=== PATIENT | female | born 1935 | race Caucasian/White ===

== ENCOUNTER 2018-12-25 14:35 | Inpatient (IN) | payer OTHER ==
[~2018-12-25] VITALS: Ht 160 cm; Wt 48.1 kg
[~2018-12-25 14:35] MED LIST: ACETAMINOPHEN-1 EAC1 PO; ASPIR 8181 MG PO; ASPIRIN81 M2 PO; AUGMENTIN 875875 MG PO; AZOR 5-40 MG T1 EACH PO; BENTYL 10 MG CA10 M1 PO; CEFPODOXIME PR200 M1 PO; CEFUROXIME250 MG PO; CIPRO500 MG PO; DIFLUCAN200 MG PO; DULCOLAX5 MG PO; DUONEB 2.5-0.5 M3 ML INH; ENTOCORT EC 3 MG3 MG PO; FLEXERIL PO; FOLIC ACID1 MG PO; KEFLEX500 M1 PO; KEPPRA250 MG PO; KLOR-CON 1010 MEQ PO; LASIX 20 MG TAB20 MG PO; LASIX 40 MG TAB40 M2 PO; LASIX 40 MG TAB40 MG PO; LOMOTIL TABLET1 EACH PO; LOPERAMIDE 2 MG2 M1 PO; MELATONIN5 M1 PO; METOPROLOL SUCC25 M1 PO; MIRALAX17 GM PO; MULTI VITAMIN1 EACH PO; NORVASC5 MG PO; ONDANSETRON HCL4 M2 PO; ONE DAILY FOR1 EAC3 PO; PEPTO-BISMOL1 TAB PO; PREDNISONE 10 M10 MG PO; REMERON15 MG PO; SENNA PLUS TAB1 EACH PO; THERAGRAN-M PR1 EAC1 PO; TRAMADOL 50 MG50 MG PO; TYLENOL325 MG PO; UNICOMPLEX M TA1 TA1 PO; VANCOMYCIN PO; VENTOLIN HFA 1818 GM INH; VITAMIN B-1100 M1 PO; VITAMIN D31000 UNI2 PO; XANAX 0.5 MG0.5 MG PO; ZOCOR20 MG PO; ZOLOFT25 MG PO; ZYPREXA2.5 MG PO; antibiotic; oxycodone PO
--- NOTE | 2018-12-25 17:50 | NUR ---
PT ARRIVED VIA EMS. VS TAKEN AND WT. GOING THROUGH INVENTORY FOR PT AND PT HAS PERSONAL PHONE AND CORD IN PURSE. LET PT KNOW SHE CAN'T HAVE THE CELL PHONE. PT WAS NOT HAPPY AND STATED SHE WOULDN'T OF COME IF SHE KNEW SHE COULDN'T HAVE HER PHONE. TOOK PURSE OFF BED TO WEIGH. THIS NURSE PLACED PURSE IN BAG AND PLACED IN LOCKER. PT HAS HEEL PROTECTORS ON BILATERAL. BED ALARM IN PLACE.
[2018-12-25 18:00] VITALS: BP 135/89
--- NOTE | 2018-12-25 18:38 | NUR ---
OBTAINED ADMISSION ORDERS FOR MEDS AND DIET PER DR. HERNANDEZ.
[2018-12-25 20:28] VITALS: BP 133/72
[2018-12-25 22:35] VITALS: BP 135/89
--- NOTE | 2018-12-25 23:37 | NUR ---
ASSUMED CARE OF PT AT 1930 AND INITIAL ASSESSMENT AT APPROX 1945-PT IS SITTING UP IN BED WHEN APPROACHED-ANGRY TENSE FACIAL EXPRESSION-THIS NURSE INTRODUCED SELF AND INFORMED ИРИНАD I WOULD BE COMPLETING HER ADMISSION TO UNIT. PT STATES "I AM NOT GOING TO BE ADMITTED I AM LEAVING I CAN'T HAVE MY PHONE-I DON'T KNOW WHY I CAN'T HAVE MY PHONE UNLESS YOU ARE TRYING TO KEEP ME FROM CALLING THE POLICE" WHEN I EXPLAINED I WAS A RN WHO'S JOB IT WAS TO HELP HER AND NOT HURT HER SHE STATES "OH I KNOW THAT IS WHAT YOUR BADGE SAYS-BUT YOU ARE AN IMPOSTER" REFUSES TO ANSWER ANY QUESTIONS FOR ADMIT INTERVIEW-REFUSING TO ALLOW ARM BAND AND OR ALLERGY BAND TO BE PUT ON POINTING TO [facility] ARM BAND STATING "THIS ONE IS THE RIGHT ONR-THE ONE YOU HAVE ISN'T REAL" DAUGHTER IN LAW AUGUSTO CONTACTED VIA PHONE AND TRANSFERED TO PT IN ATTEMPT TO REASSURE AND DECREASE ANXIETY LEVEL BUT AFTER HANGING UP PHONE STATES TO THIS NURSE " I DON'T KNOW WHO THAT WAS BUT IT WASN'T ANYONE IN MY FAMILY" REFUSES HS MEDICATIONS OR OFFERS OF FOOD/FLUIDS. DR. HERNANDEZ CONTACTED AND ORDERS RECEIVED TO PLACE PT ON 96 HOUR HOLD
--- NOTE | 2018-12-25 23:46 | NUR ---
NOTICE OF RIGHTS OF INVOLUNTARY PT READ TO PT AT APPROX 2200. PT DENIES QUESTIONS-REFUSES TO SPEAK TO NURSING STAFF-INTENSE GLARING EYE CONTACT AND BEGINS TO YELL OUT "HELP HELP" PT DID CEASE YELLING AFTER APPROX 5-10 MINUTES.
--- NOTE | 2018-12-26 03:08 | NUR ---
PT AWAKE IN ROOM-REQUESTING TO USE BATHROOM-ASSISTED TO BEDSIDE COMMODE WITH ASSIST OF TWO STAFF-HAD BEEN INCONTINENT OF SMALL AMOUNT OF URINE IN BRIEF AND DID VOID APPROX 200 CC IN COMMODE-ALLOWED STAFF TO COMPLETE PERINEAL CARE-AND INSPECT SKIN-COCYX IS NOTED TO BE REDDENED,NO OPEN AREAS SEEN,WEARING HEEL PROTECTORS BILATERALLY- YELLOW BRUISING TO LEFT FOERARM AND RIGHT ANTICUBITAL AREA APPEARS TO BE FROM RECENT IV SITE-SOME YELLOWISH COLORED BRUSING TO LEFT GORDON OBSERVED WELL. REPOSITIONED FOR COMFORT,TOOK SIPS OF WATER AND APPEARS TO BE RESTING QUIETLY AT THIS TIME-SMELLS STRONGLY OF BODY ODOR.
--- NOTE | 2018-12-26 08:41 | NUR ---
Nutrition: assess d/t low Walter score. Pt somewhat resistive to care. No recent weight loss reported. Pt is on Remeron. Will follow PO intake trends and remain available. Consider low nutrition risk at this time.
--- NOTE | 2018-12-26 11:14 | NUR ---
JAMES left a voicemail for pt daughter. JAMES provided contact information. JAMES asked if she could return the call.
--- NOTE | 2018-12-26 12:35 | NUR ---
PSYCHOSOCIAL ASSESSMENT Diagnosis: UNSPECIFIED PSYCHOSIS Admit Date: 12/25/18 Psychiatrist: MARY Symptoms associated with current admission: Depressed mood Paranoid ideation Appetite change Presenting problems: Pt was paranoid, and delusional that someone is trying to harm her. Pt stopped eating due to her having stomach problems. Pt was shown symptoms of depression. Precipitating Factors: Non-compliance psychothx Non-compliance medication Comments: History of High Risk Behavors: Other Suicide Risk Factors: D A-Signs of alcohol/substance abuse w/ suicide ideation B-Recent suicidal thoughts or attempts C-Recent thoughts or attempts of harming someone else D-Altered mental status due to psychiatric/chem dep etiology E-The behavior exists - add comment PSYCHIATRIC HISTORY Age of onset: 83 Prior hospitalizations: 1-2 times hospitalized Hospital names and dates, if available: [facility] ([place]) Most Recent Outpatient HX: Additional information: Legal Status: Voluntary Guardian/Conservatorship type: Contact name: Fe Cookavel Contact phone: [phone] Other: Name: Phone: Other legal issues: (Arrests/convictions Current Status) None P.O. Name and Phone #: FAMILY HISTORY Place of : [place] Raised in: [facility] # Siblings & order: Pt had a sister and the youngest Describe relationships within family of origin: Pt was close to the family until her sister recently Any psychiatric or substance abuse problems within family of origin: Y Has patient been sexually or physically abused, neglected or been taken advantage of financially? N Has the abuse been reported? N Other pertinent family information: Marital history/significant relationships: Domestic violence: N Children ages & who is caring for them: Pt had one adult son who . Is child welfare involved? N Drug history: None Alcohol Use: Frequency: Quantity: Have you ever felt you ought to Cut down on drinking? Have people Annoyed you by criticizing your drinking? Have you ever felt bad or Guilty about your drinking? 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 AXIS SCREENING TOOL [place] I Mood Disorders: Depression [place] II Personality/Mental Retardation: [place] III Medical Impairment: Alzheimer's HTN Other [place] IV Problem(s) with: Housing Health care services [place] V: 50-Serious w/impairment Additional [place] comments: PERSONAL BACKGROUND Relevant cultural issues (ethnicity, values, beliefs, spiritual): None spiritual Rastafarian: Importance of alevism to patient: Unmet spiritual needs What hobbies/interests does the patient have? Garden Animals Bird watching Antiques Sexual orientation (relevant impact to current treatment): Heterosexual : Where did you serve: Branch of service: Rank: Discharge status: Are you a combat ? Occupational/Work: Do you work? N Do you want to work? N How many hours do you work/week? 0 How many jobs have you had in the past 5 years? 0 Do you need assistance finding a job? N Does the patient need assistance in job training? N Source of income: [facility] Does patient have a Payee? N Payee name: Approximate monthly income: 2500 Does patient have adequate funds for next 30 days? Y Education background: High school diploma Highest grade completed: 12th grade Other Educational/training programs: Functional deficits: Explain functional deficits: Current living situation: House/apartment Address/phone where pt. is living: [place], [place] Does the patient plan to continue there after DC? No Patient lives with: Alone Will family/significant other be involved in treatment? Other community support services utilized: Pt will need a referral to memory care setting Support System Available (family/friend) Name: Fe Underwood Phone: Relationship: [phone] Name: Phone: Relationship: Name: Phone: Relationship: Patient strengths: Family support Insight Community support Patient's assets: Positive support system Good self care Patient's weaknesses: Health problems Chronic hx mental illness Additional weaknesses: Pt is displaying cognition problems, and shown symptoms of depression. Patient's perception of current aids social worker/case management needs: Pt stated that SW is someone who assist in care, and help family when needed. PRELIMINARY DISCHARGE PLAN Discharge plan/Community resource contacts: Pt will discharge to a memory care setting Discharge needs: Pt will need assistance with referral to a facility. Problems anticipated on discharge: Compliance w/ med regimen Comments: (factors affecting DC plan/pt. response/interventions) Pt will need to be discharge to a nursing facility.
--- NOTE | 2018-12-26 12:59 | NUR ---
ASSUMED CARE AT 0715 TODAY. HAS BEEN ON THE UNIT FOR MEALS AND ATTENDED GROUPS. 2 FAMILY MEMBERS CAME TODAY. THEY WANTED TO REQUEST PAIN MEDICATIOS FOR THE PT. 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 TYLENOL PRN WAS PROVIDED FOR THE PATIENT. FAMILY MEMBERS WERE HER TO TALK TO THE MACHINE TENDER. PT. GIVEN A BATH TODAY AND BEDDING CHANGED. DENIES SI/HI. STATES SHE IS NOT HAVING [facility] TODAY. IS NOT EATING MUCH OF MEALS (APPROXIMATELY 25%). DRESSED IN HOSPITAL CLOTHING AND HER SWEATER AMD SHOES. STATES HER LAST BM WAS EARLY THIS MORNING.
[2018-12-26 13:12] VITALS: BP 135/89
[2018-12-26 21:11] VITALS: BP 108/72
--- NOTE | 2018-12-27 02:40 | NUR ---
ASSUMED CARE @ 19:15. SITTING IN THE DAYROOM NEAR THE TV. DOES NOT SEEM TO BE WATCHING TV. A&O TO SELF ONLY. HRRR S1, S2 NOTED. LUNGS CTA AND ABD NORMOACTIVE X 4 Q.
[2018-12-27 04:14] VITALS: BP 128/72
[2018-12-27 07:45] VITALS: BP 112/63
--- NOTE | 2018-12-27 10:46 | NUR ---
ASSUMED PATIENT CARE AT 0730. UP AT D.R. TABLE, AWAITING BREAKFAST AT THAT TIME. UNABLE TO TAKE A.M. MEDICATIONS, RELATED TO EXTREME DROWSINESS. TOOK ONE MED IN APPLESAUCE, WOULD NOT SWALLOW THE SECOND MED. WILL ATTEMPT LATER. CONTINUE TO MONITOR.
--- NOTE | 2018-12-27 11:47 | NUR ---
PATIENT C/O OF BACK PAIN TO HER DAUGHTER,ADMINISTERED 650 MG OF TYLENOL AT THIS TIME IN SRAVANTHI[RONAL. AL;SO TOOK ALL A.M. MEDICATIOONS AT THIS TIME.
--- NOTE | 2018-12-27 15:30 | NUR ---
PATIENT BECAME DROWSY AFTER LUNCH; NURSE DIRECTED FILLER SHREDDER HELPER TO LIE PATIENT DOWN FOR A NAP. LYING IN SUPINE POSITION IN BED AT THIS TIME.
--- NOTE | 2018-12-27 16:37 | H ---
[facility] [place] [address] HISTORY AND PHYSICAL Name: MONICA BANDA Room #: 526B-B ADM IN M.R.#: [id number] Admission: 12/25/18 ������������������ Attend Phys: Micheal Hall DO Discharge: ������������������ Date of : 39 Report #: [id number] THIS REPORT FOR: //name// CC: Micheal Malone Leslie DATE OF SERVICE: 12/25/2018 REGULATORY MANAGER: Micheal Cano MD. PRIMARY TEAM ATTENDING PHYSICIAN: Micheal Hall DO. REASON FOR ADMISSION: Paranoia, refusal to take medicines, changes in cognition, concern for dementia process. HISTORY OF PRESENT ILLNESS: This is an 83-year-old female, [place] who moved in 1959 to the [place] with her then who has . The patient is a suboptimal historian. Her [id number], Fe, provided most of the general history. The patient was admitted to [facility] on 12/08/2018 and transferred from [place] on 12/25/2018 to [facility]. The recent events were the patient living independently in a private residence in the community, calling 911 for abdominal pain and does not remember taking 2 Roxicodone pills, but she says she must have done it. She took the medication. She was unable to walk because her legs felt weak. Her left lower leg started to develop a tremor. She also had nausea during this episode. Denies vomiting. The patient became septic went into respiratory failure, required several days on ventilator then weaning. She had a tele-psychiatry consult that really only addressed delirium. PAST MEDICAL HISTORY: Includes cataracts, weakness, unsteady gait, acute renal failure, polio as a child, hypertensive cardiomyopathy with diastolic congestive heart failure. PAST SURGICAL HISTORY: Appendectomy 1998, double abdominal hernia 2000. FAMILY MEDICAL HISTORY: Heart disease in her mother. SOCIAL HISTORY: Denied smoking, alcohol or recreational drug use. ALLERGIES: SPIRONOLACTONE. REVIEW OF SYSTEMS: CONSTITUTIONAL: Weakness. Denies fever or chills. EYES: She has macular degeneration. HEENT: Headache. Denied dizziness. RESPIRATORY: Denies cough, shortness of breath. [facility] [address] [place] [address] HISTORY AND PHYSICAL Name: MONICA BANDA Room #: 526B-B ADM IN ..#: [id number] Admission: 12/25/18 ������������������ Attend Phys: Micheal Hall DO Discharge: ������������������ Date of : 37 Report #: [id number] CARDIOVASCULAR: Denies chest pain or palpitations. GASTROINTESTINAL: Denies nausea, vomiting or diarrhea. GENITOURINARY: Denies frequency, burning or hematuria. MUSCULOSKELETAL: Pain from the neck down to her hip, particularly on the left side. SKIN: Denies rash or changes in color. NEUROLOGIC: She has a history weaknesses and tremors. PSYCHIATRIC: Denied SI, HI, auditory, visual, or tactile hallucinations. Otherwise, 10-point review of systems was negative. Physical exam performed by Dr. Cano. LABORATORY DATA: Recent laboratories include on 12/21/2018, CBC: WBC 8.0, H and H 13.8 and 40.1, platelet count 308. Coagulation test done on 12/17/2018, PT 12, INR 1.2, APTT 26.9. Chemistries from 12/21/2018, sodium 139, potassium 3.6, chloride 99, bicarbonate 32, anion gap 8, BUN 11, creatinine 0.6, estimated GFR 96. Other ones from 12/21/2018, ALT 23, AST 22, alkaline phosphatase 71. Vitamin B12 level 1526, 25-hydroxy cholecalciferol 29.6, so she is slightly low, folate 31.9. TSH 1.916 on 12/19/2018. The patient had a spinal tap done on 12/17/2018, which was grossly normal. OBJECTIVE: VITAL SIGNS: Today, temperature 36.6, pulse 88, respirations 16, BP 135/89, O2 sat 96%. MUSCULOSKELETAL: She is using a wheelchair now, not ambulating. MENTAL STATUS EXAMINATION: This is a well-developed, fairly nourished, but disheveled female appearing stated age. Attention intact. Concentration limited. Speech slow, normal volume, normal tone. Thought process, linear and limited. Thought content, relative poverty of thought. No psychomotor agitation. No psychomotor retardation. Oriented to person, situation, place, not fully to time, did not know date or day of the week. Denied auditory, visual, or tactile hallucinations. Denied suicidal intent or plan. Some helplessness and some hopelessness. Denied homicidal intent or plan. Memory not formally tested today, but will be in the next few days. Insight limited. Judgment limited. Fund of knowledge below average. IMAGING: Brain MRI with MRA done on the . Dr. Rahman did neurology workup included no evidence of hemodynamically significant stenosis from the MRA head. Head MRI on showed mild to moderate generalized parenchymal volume loss and mild to moderate chronic small vessel ischemic changes. No evidence of acute recent infarction. DIAGNOSES: At this time, unspecified psychosis; rule out major neurocognitive disorder, likely Alzheimer's type with behavioral disturbance. [facility] [address] [place] [address] HISTORY AND PHYSICAL Name: MONICA BANDA Room #: 526B-B ADM IN M.R.#: [id number] Admission: 12/25/18 ������������������ Attend Phys: Micheal Hall DO Discharge: ������������������ Date of : 37 Report #: [id number] comorbidities include opiate withdrawal essentially completed, hypertension, chronic back pain, orthostatic hypotension, recent history of. PLAN AND CURRENT MEDICATIONS: Thiamine 100 mg p.o. daily, olanzapine 2.5 mg p.o. in the a.m., 5 mg p.o. at bedtime, multivitamin, metoprolol succinate 25 mg p.o. daily, folic acid 1 mg p.o. daily, vitamin D2 of 1000 international units p.o. daily, aspirin 81 mg p.o. daily, amlodipine 5 mg p.o. b.i.d., mirtazapine 30 mg p.o. at bedtime, Keppra 250 mg p.o. b.i.d., otherwise just regular PRNs. Evaluate, stabilize and obtained collateral. The patient will likely need a long-term care placement. We will attempt to stratify the degree of her dementia. Time spent on interview, review of records and coordination of care of this patient is 60 minutes. strengths: daughter in lawsupportinve, insured weaknesses: advancing age, multiple medical problems ��������������������������������������������� <ELECTRONICALLY SIGNED> ���������������������������������������� By: Micheal Hall DO ��������������������������������������������� 12/27/18 1637 [id number] Micheal Hall, /nt
[2018-12-27 19:39] VITALS: BP 91/62
--- NOTE | 2018-12-27 22:06 | NUR ---
ASSUMED CARE @ 19:15.IN THE DAY ROOM SITTING AT A TABLE. AWAKE AND ORIENTED TO SELF ONLY. WHEN SPOKEN TO DURING ASSESSMENT, SEEMS TO THINK AOBUT HER ANSWER TO A QUESTION, BUT DOES NOT RESPOND. FLAT AFFECT, LETHARGIC AND QUIET. HRRR, S1S2 NOTED. LUNGS DIMINISHED AND SHALLOW RESPIRATIONS EVEN WHEN PROMPTED TO BREATH DEEPLY FOR ASSESSMENT. 2100 MEDS GIVEN WHOLE WITH YOGART AND WATER. ABD FLAT, NORMOACTIVE BOWEL SOUNDS, NON RESPONSIVE WHEN ASKED ABOUT BM TODAY.
[2018-12-27 22:21] VITALS: BP 91/62
--- NOTE | 2018-12-28 02:01 | NUR ---
ASSUMED CARE @ 19:15. IN DAY ROOM SITTING @ TABLE. A&O X1 TO SELF ONLY. WHEN SPOKEN TO DURING ASSESSMENT, APPEARS TO THINK ABOUT HER RESPONSE TO EACH QUESTION, BUT DOES NOT VERBALY RESPOND. FLAT AFFECT, LETHARGIC AND QUIET. HRRR, S1S2 NOTED. LUNGS SOUNDS ARE DIMINISHED, WITH SHALLOW RESPIRATIONS, EVEN WHEN PROMPTED TO BREATHE DEEPLY. TAKES 2100 MEDS WITH WHOLE WITH YOGART AND WATER. WILL CONTINUE TO MONITOR.
--- NOTE | 2018-12-28 03:54 | NUR ---
AT 02:00 PATIENT'S FSBS WAS 73. SHE DRANK HALF OF AN ENSURE AND RETURNED TO SLEEP. PT WAS ABLE TO AWAKEN, DRINK THE ENSURE AND SPEAK SHORT ANSWERS TO QUESTIONS.
[2018-12-28 11:20] VITALS: BP 96/61
--- NOTE | 2018-12-28 16:57 | NUR ---
ASSUMED CARE AT 0715 TODAY. PT. SITTING AT TABLE NOT SPEAKING. WHEN THIS MRI SPECIALIST APPROACHED THE PT. SHE DID NOT SPEAK. SHE DID NOT EAT WHEN BREAKFAST ARRIVED, EVEN WHEN STAFF TRIED TO ASSIST HER. AFTER 0900 SHE STARTED TALKING TO STAFF IN SHORT ANSWERS. WHEN GIVEN AM MEDICATIONS THEY WERE CRUSHED AND IN APPLESAUCE. AT FIRST SHE KEPT SPITTING THE APPLESAUCE/MED MIXTURE OUT. THIS RN KEPT WORKING AT GIVING HER THE MEDICATIONS. SHE DID FINALLY GET THEM DOWN. SHE SAT UP UNTIL AFTER LUNCH, THEN LAYED DOWN IN HER BED TO REST THIS AFTERNOON.
[2018-12-28 19:17] VITALS: BP 100/70
[2018-12-28 21:40] VITALS: BP 100/70
--- NOTE | 2018-12-29 04:27 | NUR ---
PT QUIET, BUT DID ENGAGE RN WHEN MED TIME ARRIVED. "YOU ARE CRUEL." TOOK MEDS WITH ENCOURAGEMENT, BUT VERBALLIZED IN HER "CRUEL" STATEMENT THAT SHE REALLY DID NOT WANT TO TAKE THEM. MEDS PLACED IN PUDDING, AND PT TOOK MEDS AND THEN FINISHED THE PUDDING. SLEPT WELL THROUGH THE NIGHT.
[2018-12-29 14:15] VITALS: BP 109/62
--- NOTE | 2018-12-29 15:45 | NUR ---
ASSUMED PATIENT CARE AT 0700. PATIENT UP FOR BREAKFAST, WOULD NOT EAT. ALSO WOULD NOT TAKE A.M. MEDICATIONS. HOWEVER, TOOK MEDS AFTER HER DAUGHTER ARRIVED FOR 1045 VISITING. ATTENDED SW GROUP AND R.T. GROUP. ATE 50% OF LUNCH. CURRENTLY SITTING AT D.R. TABLE. FLAT AFFECT, NO BEHAVIORS, SAD MOOD. UNHAPPY WITH BEING HERE. CONTINUE TO MONITOR.
[2018-12-29 20:14] VITALS: BP 105/67
--- NOTE | 2018-12-30 02:22 | NUR ---
Noted to be awake and restless in bed at approx 0130- states she thought it was time to get up for the day and was having a hard time resting-asssited to wc and brought to dayroom for hot tea and cracker-watched new on tv until approx 0200 when she states was ready to return to bed-did void approx 200 cc in bedside commode-noted to have 2-3 + PEDAL EDEMA BILAT.
[2018-12-30 14:35] VITALS: BP 108/72
--- NOTE | 2018-12-30 17:44 | NUR ---
UP TO DINNIING ROOM FOR MEALS. REFUSED AM MEDS UNTIL DAUGHTER VISITED. FLAT AFFECT. CONTINES TO BE PARANOID AND GRUMPY. POOR TO FAIR APPETITE, DRINKS ENSURE. LOWER EXTREMITES WITH 2+ PITTING EDEMA. VOIDS PER BEDSIDE COMMODE. ON ROOM AIR. RESP EVEN AND UNLABORED.
[2018-12-30 20:35] VITALS: BP 110/65
--- NOTE | 2018-12-31 05:28 | NUR ---
IN BED AND APPEARS TO BE SLEEPING UPON INITAL ASSESSMENT THIS PM AT 1945-EAILY AROUSES TO VERBAL STIMULI FOR HS MED PASS BUT DROWSY AND REFUSES TO COME OUT FOR HS SNACK,OR TO CHANGE INTO PAJAMAS. RETURNS TO SLEEP ALMOST IMMEDIATLY AFTER MEDICATION ADMINISTRATION.
--- NOTE | 2018-12-31 05:31 | NUR ---
AWAKE AND REQUESTING TO USE TOILET AT 0300-ASSISTED TO BSC WITH SBA X 1 STAFF AND DID VOID APPROX 200CC CONCENTRATED URINE KEERTHI IN COLOR. NO BM BUT IS NOTED TO HAVE AUDIBLE HYPERACTIVE BS. IRRITABLE DYSPHORIC AFFECT-ABRUPT RESPONSES TO QUIERIES FROM STAFF-REPOSITIONED FOR COMFORT-WILL CONTINUE TO MONITOR
[2018-12-31 07:50] VITALS: BP 122/69
--- NOTE | 2018-12-31 10:56 | NUR ---
Nutrition followup: po intake has been less than 50% most meals. Should be reweighed on Sat 01/03. Team meeting today-pt drinking some ensure and other liquids better than food intake. Has been constipated. On vitamin D, thiamine, folic acid and mvi supplementation. Offer food preferences. Low nutrition risk with appropriate nutrition interventions in place
[2018-12-31 12:37] VITALS: BP 122/69
--- NOTE | 2018-12-31 18:52 | NUR ---
ASSUMED CARE AT 0715 TODAY. PT. UP FOR MEALS, BUT ONLY ONE GROUP. SHE CONTINOUSLY WANTS TO GO TO BED AND GO TO SLEEP. SHE HAS A SLIGHT IRRITABLE EDGE WHEN SHE DOES NOT GET WHAT SHE WANTS. SHE CONTINUES TO WANT TO EAT SOLID FOOD AND ONLY DRINKS PROTEIN DRINKS, COFFEE. RECEIVED PHONE CALL FROM FRIEND NARDA.
[2018-12-31 19:32] VITALS: BP 109/70
--- NOTE | 2018-12-31 21:47 | NUR ---
ASSUMED CARE @ 19:15. UP IN W/C IN DAY ROOM. WHEN ASSESSED, WOULD NOT SPEAK TO ME, BUT SAID ONE COMMENT, "YOU ARE ALL SAYING THE SAME THING TO ME". WHEN PROVIDED 2100 MEDS, FIRST REFUSED TO TAKE, THE NAMES AND PURPOSE OF MEDICATIONS WERE PROVIDED. SHE THEN AGREED TO TAKE, BUT ONCE SHE HAD THE MEDIDCATION IN HER MOUTH, SHE SPIT IT OUT. WILL CONTINUE TO MONITOR.
[2018-12-31 21:55] VITALS: BP 109/70
--- NOTE | 2019-01-01 05:20 | NUR ---
SLEPT WELL ALL NIGHT, FOR A TOTAL OF 9 HOURS.
--- NOTE | 2019-01-01 10:15 | NUR ---
ASSUMED PATIENT CARE AT 0700. PATIENT ASSISTED UP TO BREAKFAST, ATE ONLY 5% OF MEAL. REFUSED ALL A.M. MEDICATION, INCLUDING OLANZAPINE 2.5 MG P.O. LORETO CARSON, CONTACTED R/T POSSIBLE IM INJECTIOON TO REPLACE P.O. ALLI STATED THAT FRIENDS ARE COMING FOR VISITING HOURS IN HER PLACE; WOULD LIKE TO SEE IF VISITORS CAN "COAX HER INTO" TAKING HER 0900 MEDICATIONS. NURSE WILL CALL ALLI BACK IF THOSE EFFORTS ARE NOT SUCCESSFUL. MOOD, QUIET, BEHAVIOR RESISTIVE, AFFECT BLUNTED.
[2019-01-01 20:20] VITALS: BP 104/70
--- NOTE | 2019-01-01 20:42 | NUR ---
Pt resting in bed at beginning of shift, she requested apple juice and was provided. Compliant with medications after given rationale for taking them and compliant with fsbs 140. Pt had pudding as snack and yogurt with meds whole. Pt transfers from w/c to bed with sba steady. sbp 104. Pt denies pain and reported bm today. Noted BLE edema +1. Pt requested to [facility] bed at 2044.
--- NOTE | 2019-01-02 05:52 | NUR ---
Pt awakened for incontinence check and change, requested prn tylenol for back pain and provided.
[2019-01-02 07:35] VITALS: BP 130/70
[2019-01-02 08:00] VITALS: BP 130/70
[2019-01-02 09:00] VITALS: BP 130/70
--- NOTE | 2019-01-02 09:10 | NUR ---
PT SITTING AT DINING ROOM TABLE. PT STATED HER STOMACH HURT EARLIER AND WITH SOME NAUSEA, NO COMPLAINTS AT THIS TIME. PT REFUSING SOME OF AM MEDS SUCH FOLIC ACID, VIT B, AND ZYPREXIA. PT STATED SHE WANTED HER XANAX, DID TAKE ZYPREXIA WITH ENCOURAGEMENT. PT FEEDING SELF.
--- NOTE | 2019-01-02 14:00 | NUR ---
PT WHEELED SELF TO BEDROOM. PT ABLE TO TALK TO AUGUSTO ON PHONE AND THEN WANTED OT GO LAY DOWN. PT ABLE TO GET UP OUT OF CHAIR AND SIT ON BED. ASSISTED PT GETTING LEGS UP ON BED.
--- NOTE | 2019-01-02 14:10 | NUR ---
Recreational Therapy Weekly Progress Note Date of Admission: 12/25/18 Date of Activity Therapy Assessment: 12/28/18 Activity Goal: Patient will participate in 1 recreational therapy group per day until discharge. Initial Goal: Increase socialization in milieu to aid in development of social skills and trusting relationships. Weekly progress towards goal: On track Group participation level: Minimal Behaviors observed: Pts attitude/motivation continues to be poor. Pts participation has become more frequent though continues to be inconsistent. Engagement also continues to be minimal. Plan: No change towards goal
--- NOTE | 2019-01-02 18:15 | NUR ---
PT ACCEPTED NEW MED NAMENDA, PT ASKED WHAT IT WAS, NURSE RESPONDED TO IT HELPS HER MEMORY.
--- NOTE | 2019-01-02 18:30 | NUR ---
PT WANTING SOMETHING FOR ANXIETY. STATED CLOSEST TO GETTING ANT-ANXIETY MED IS 1999. SHE IS WANTING IT NOW.
[2019-01-02 20:38] VITALS: BP 104/67
--- NOTE | 2019-01-03 04:10 | NUR ---
ASSUMED CARE @ 19:15. UP IN W/C TO DAY ROOM. ASKS REPEATEDLY FOR ANTIANXIETY MEDICATION, EXPLAINED THAT CANNOT HAVE UNTIL AFTER 20:05. ACKNOWLEDGES UNDERSTANDING, THEN ASKS AGAIN. MEDS PROVIDED @ 20:30. PT TOOK MEDS WHOLE WITH WATER. REFUSED DOCUSATE. EXPLAINATION OF NAME OF MEDICATIONS AND PURPOSE OF EACH. REPORTS BM THIS MORNING. VS STABLE. WILL CONTINUE TO MONITOR.
[2019-01-03 04:15] VITALS: BP 104/67
--- NOTE | 2019-01-03 04:26 | NUR ---
IN BED ALL NOC. EYES CLOSED, RESPIRATIONS EVEN AND UNLABORED. WILL CONTINUE TO MONITOR.
[2019-01-03 07:55] VITALS: BP 135/75
[2019-01-03 13:13] VITALS: BP 135/75
--- NOTE | 2019-01-03 13:20 | NUR ---
ASSUMED CARE AT 0715 TODAY. UP ON UNIT FOR BREAKFAST. TOOK MEDS WITHOUT DIFFICULTY. UP ON UNIT MUCH OF THE DAY. HAIR IS DISHEAVELED. ATTEMPTED TO COMB HAIR, BUT IT WAS VERY OILY, DIRTY AND KNOTTED. PT. ASKED TO TAKE A SHOWER TODAY. SHE WAS INFORMED SHE WOULD BE GIVEN ONE STAFF CAN HAVE TIME.
[2019-01-03 22:22] VITALS: BP 110/52
--- NOTE | 2019-01-04 05:47 | NUR ---
ASSUMED CARE @ 1900, AT THAT TIME, PT WAS IN BED WITH EYES CLOSED, RESPIRATIONS EVEN AND UNLABORED. AWAKENED TO VOICE, AND VS TAKEN AND ASSESSMENT COMPLETE. FSBS 92 @ 21:15. 2100 MEDICATIONS PROVIDED WHOLE WITH WATER. EXPRESSED A DESIRE FOR TYLENOL, HOWEVER NOT TIME TO TAKE IT UNTIL 00:30, AND AT THAT TIME PT WAS ASLEEP.
[2019-01-04 07:30] VITALS: BP 106/66
[2019-01-04 10:14] VITALS: BP 106/112
--- NOTE | 2019-01-04 10:48 | NUR ---
ASSUMED CARE AT 0600 TODAY. PT. IN BED AT BEGINNING OF THE SHIFT. SHE WAS GOTTEN UP IN HER W/C AND TAKEN TO DINNING ROOM FOR BREAKFAST. SHE RETURNED TO HER ROOM BRIEFLY THEN HAS BEEN SITTING IN THE DINNING ROOM. SHE HAD COMPANY AT 1045. SHE HAS BEEN COMPLIANT WITH TAKING HER MEDICATIONS WITH SOME ENCOURAGEMENT FROM THIS RN.
[2019-01-04 20:58] VITALS: BP 101/60
--- NOTE | 2019-01-05 01:00 | EKG ---
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 : 1935 Requested By: Micheal Hall Order Number: [id number] MD: Torrey Bradford Measurements Intervals Summers Rate: 86 P: 63 SD: 197 QRS: -16 QRSD: 85 T: 39 QT: 370 QTc: 443 Interpretive Statements Sinus rhythm Left ventricular hypertrophy Borderline j point elevation, lateral leads Leftward axis No previous ECG available for comparison Electronically Signed On 01-05-2019 1:00:42 CDT by Torrey Bradford [email or web address] ��������������������������������������������� <ELECTRONICALLY SIGNED> ���������������������������������������� By: Torrey Bradford MD ��������������������������������������������� 01/05/19 0100 1447 144 Torrey Bradford MD /JENELLE
[2019-01-05 01:31] VITALS: BP 101/60
--- NOTE | 2019-01-05 03:41 | NUR ---
PT QUIET AND COOPERATIVE THIS PM. IN ROOM AT [facility] OF SHIFT RESTING COMFORTABLY. REQUESTING XANAX FOR ANXIETY. TOLD SHE DID NOT HAVE THAT MED ORDERED. TOOK HS MEDS PRESCRIBED AND SLEPT WELL THROUGH THE NIGHT.
[2019-01-05 15:07] VITALS: BP 134/75
--- NOTE | 2019-01-05 15:19 | NUR ---
ASSUMED CARE AT 0715 TODAY. PT. IN BED WHEN THE SHIFT BEGAN. SHE WAS GOTTEN UP FOR MEALS AND GROUPS. PT. HAS BEEN PLEASANT AND COOPERATIVE WITH STAFF, ALTHOUGH SHE INTERACTS ONLY WHEN APPROACHED BY STAFF. SHE DOES NOT INTERACT UNTIL STAFF APPROACHES HER. SHE WHEELED HERSELF TO HER ROOM AND GOT HERSELF INTO HER BED THIS MORNING. THIS RN TOLD PT. SHE NEEDS TO BE UP MORE DURING THE DAY AND NOT SPEND ALL OF HER TIME IN THE BED. SHE VERBALIZED THAT SHE UNDERSTOOD. SHARED THIS IDEA ALSO. PT. WAS KEPT UP THIS AFTERNOON AND SHE DID ATTEND SW GROUP AT 1300. SHE THEN LAYED DOWN IN HER BED AFTER THE GROUP. SHE HAS BEEN COOPERATIVE WITH TAKING HER MEDICATIONS BUT CONTINUES TO ACT SUSPICIOUS ASKING WHAT ALL OF THE MEDICATIONS WERE FOR AND DID NOT TAKE THEM UNTIL SHE KNEW WHAT THEY WERE FOR. DENIES HI/SI.
[2019-01-05 19:43] VITALS: BP 100/62
[2019-01-05 23:19] VITALS: BP 100/62
--- NOTE | 2019-01-06 04:21 | NUR ---
PT OUT IN DAY AREA AT [facility] OF SHIFT. ON THE EDGE OF THE GROUP AND NOT INTERACTING WITH PEERS. SPEAKS ONLY WHEN SPOKEN TO, BUT ANSWERS QUESTIONS AND IS SOMEWHAT PLEASANT WITH STAFF. RETURNED TO ROOM AFTER EVENING SNACKS. TOOK HS MEDS BUT WANTED TO BE TOLD SPECIFICALLY WHAT THEY WERE. SLEPT INTERMITTANTLY THROUGH THE NIGHT.
--- NOTE | 2019-01-06 04:49 | NUR ---
Patient reports vaginal itching. Upon assessment, labia appears radha in color. Slightly swollen. No open areas or rash visible. Patient denies pain but reports itching and burning. Patient had been incontinent of urine. Mireya care provided, barrier ointment applied.
[2019-01-06 07:45] VITALS: BP 108/66
--- NOTE | 2019-01-06 08:54 | NUR ---
0730: Report from [facility] shift, care assumed. Ambulatory in halls to DR, dressed neatly in clothes, states she had "nightmare" during the noc, pt states she knows they are "fake" but yet frightening. Feeds self for meals, appetite good, takes meds whole w/o difficulty. Denies suicidal thoughts or self harm. Left inner wrist superficial abrasion (post-suicide attempt) healing well, no s/s of infection. Inital assessment completed, VS stable, BM this a.m.
--- NOTE | 2019-01-06 09:01 | NUR ---
0730: Report from [facility] shift, care assumed. Moblity via w/c, self propels in [place] and to DR, alert, oriented to name, place and time of day. Feeds self, declines set-up assist, appetite fair. Medication review completed with pt, olga Chapin and Martha, Dr. Wallace here, aware of pt not needing laxative/stimulant meds. Takes meds whole w/o difficulty, denies pain @ this time. Initial assessment completed, states had BM on 01/05.
--- NOTE | 2019-01-06 16:06 | NUR ---
JAMES recieved a call from pt daughter Fe concerning private pay through [facility]. Pt daughter stated that is willing to come on Sunday, January 06, 2019 to pay the facility that her mother can be discharged. JAMES called in spoke with Jayna concerning pt daughter been accepted at [facility]. Clarke the admission coordinator stated that she will notify the SW if payment is recieved to proceed with discharge. JAMES will follow-up with pt family upon discharge.
[2019-01-06 19:28] VITALS: BP 109/68
--- NOTE | 2019-01-06 21:00 | NUR ---
Pt resting in bed upon arrival of shift. Pt requesting medication for anxiety and hs meds provided with prn tylenol for generalized pain. Pt had applesauce and ice cream with meds. Pt did ask for purpose of each medication twice but was then compliant. Good eye contact, initiated conversation regarding her wants.
[2019-01-07 08:37] VITALS: BP 129/72
--- NOTE | 2019-01-07 09:00 | NUR ---
[id number]: Report rec. from [facility] shift, care assumed. Resting supine in bed, no distress noted, awakens slowly with verbal stimuli. Assisted x1 by staff for dressing and assistance with set-up for a.m. meal. Mobility via w/c, cooperative with staff, affect flat. Medications reviewed with pts, Miralax and Senna held due to pt refusal. States last BM was 2 days ago. Takes meds whole, w/o difficulty.
--- NOTE | 2019-01-07 10:29 | NUR ---
Jayna from [facility] stated that the pt daughter made a payment, and she will be able to discharge. SW will schedule transportation through [facility]. SW will follow-up with pt upon discharge.
[2019-01-07] MEDS ORDERED: METOPROLOL SUCC25 M1 PO (11:44)
[2019-01-07] MEDS ORDERED: ASPIRIN81 M2 PO (11:45)
[2019-01-07] MEDS ORDERED: KEPPRA750 MG PO (11:47)
[2019-01-07] MEDS ORDERED: REMERON15 MG PO (11:48)
[2019-01-07] MEDS ORDERED: ZYPREXA 5 MG TAB5 M1 PO ×2 (11:49→11:51)
[2019-01-07] MEDS ORDERED: SENNA-TIME S T1 EACH PO (11:53)
[2019-01-07] MEDS ORDERED: MIRALAX17 GM PO (11:54)
[2019-01-07] MEDS ORDERED: PANTOPRAZOLE SO40 M1 PO (11:54)
[2019-01-07] MEDS ORDERED: VITAMIN D2000 UNIT PO (11:55)
[2019-01-07] MEDS ORDERED: MULTIVITAMINS PO (11:56)
--- NOTE | 2019-01-07 12:13 | NUR ---
Patient Name: MONICA BANDA Admission Date: 12/25/18 DISCHARGE PLAN: Pt will be discharging to [facility]. Care Assessment: Pt was assessed by Dr. Hall, and diagnosed with Major Neurocognitive Disorder. Level II Assessment: None Transportation: Pt will be transported by [facility] staff. Special Instructions/Notes: Pt will need assistance with ADL's, and supervised and monitored due to her cognition. Pt will have a private room. DISCHARGE TO FACILITY: Memory Care Unit Facility: [facility] Address: [facility] [place] [address] Contact Name: Jayna PCP: JS Psychiatrist: [facility] Psychiatrist
--- NOTE | 2019-01-08 21:26 | D ---
[facility] [place] [address] DISCHARGE SUMMARY Name: MONICA BANDA Room #: 526B-B DIS IN M.R.#: [id number] Admission: 12/25/18 ������������������ Attend Phys: Micheal Hall DO Discharge: 01/07/19 ������������������ Date of : 39 Report #: [id number] THIS REPORT FOR: //name// CC: Micheal Malone Leslie DATE OF SERVICE: 01/07/2019 INPATIENT PSYCHIATRIC DISCHARGE SUMMARY ATTENDING PHYSICIAN: Micheal Hall DO. WEALTH MANAGEMENT ADVISOR: Rj Mccabe M.D. DISCHARGE DIAGNOSIS: Major neurocognitive disorder, most likely multifactorial with behavioral disturbance, improved. MEDICAL COMORBIDITIES: Include as follows: Hypertension, well controlled, Norvasc was discontinued; constipation, controlled; Opioid withdrawal, resolved; history of recurrent UTIs and chronic back pain. DISCHARGE PLAN: Discharge to [facility]. DISCHARGE DIET: The patient's discharge diet is as follows. Mechanical altered chopped with Ensure t.i.d. with meals. DISCHARGE MEDICATIONS: Metoprolol succinate XL 25 mg oral daily, aspirin enteric coated 81 mg p.o. daily, Keppra 250 mg twice per day, mirtazapine 30 mg oral at bedtime for sleep; Keppra, seizure prophylaxis; aspirin, cardioprotection and metoprolol succinate, rate control for AFib; olanzapine 5 mg oral daily for psychosis in the morning and 12.5 mg oral at bedtime; polyethylene glycol 17 grams oral daily; sennosides with Colace 1 tablet oral twice daily for bowel motility; pantoprazole 40 mg oral daily for GERD; cholecalciferol 2000 International Units daily for vitamin D supplementation and multivitamins 1 tab p.o. daily. LABORATORY DATA: Significant laboratories this admission, there were no labs during this psychiatric admission, other than brdrw-hk-obqw glucose. VITAL SIGNS ON THE DAY OF DISCHARGE: Temperature 36.8, pulse rate 76 and BP 129/72. MUSCULOSKELETAL EXAMINATION: Nonambulatory at present, using wheelchair. Her gait did deteriorate. This was felt to be myself and therapy staff's more by choice. [facility] [address] [place] [address] DISCHARGE SUMMARY Name: MONICA BANDA Room #: 526B-B [facility] IN ..#: [id number] Admission: 12/25/18 ������������������ Attend Phys: Micheal Hall DO Discharge: 01/07/19 ������������������ Date of : 39 Report #: [id number] MENTAL STATUS EXAMINATION: This is a well-developed, disheveled female, appearing nearly stated age. Attention limited. Concentration limited. Speech slow, soft, deliberate. Thought process linear and goal directed. Thought content still paranoid at the time of discharge that she was being put in a nursing facility so I could take her money and things of that nature. Denied auditory, visual or tactile hallucinations. Denied suicidal intent. Some helplessness, some hopelessness. Denied homicidal intent. Memory noted to be impaired. She had a SLUMS of 11 out of 30 during admission. Insight limited. Judgment limited. Fund of knowledge below average. 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 40 minutes spent on discharge activities ��������������������������������������������� <ELECTRONICALLY SIGNED> ���������������������������������������� By: Micheal Hall DO ��������������������������������������������� 01/08/19 2126 2315 0015 Micheal Hall DO /nt
== END 2019-01-07 14:56 | DRG 57 ==
LOC: SBH
PROVIDERS: ADMIT Psychiatry & Neurology Psychiatry
DX: G30.9 Alzheimer's disease, unspecified (principal); I43 Cardiomyopathy in diseases classified elsewhere; I50.30 Unspecified diastolic (congestive) heart failure; F11.23 Opioid dependence with withdrawal; F02.81 Dementia in other diseases classified elsewhere, unspecified severity, with behavioral disturbance; F01.51 Vascular dementia, unspecified severity, with behavioral disturbance; G89.29 Other chronic pain; M54.9 Dorsalgia, unspecified; K59.00 Constipation, unspecified; F32.9 Major depressive disorder, single episode, unspecified; I11.0 Hypertensive heart disease with heart failure; F29 Unspecified psychosis not due to a substance or known physiological condition; F01.50 Vascular dementia, unspecified severity, without behavioral disturbance, psychotic disturbance, mood disturbance, and anxiety; Z98.42 Cataract extraction status, left eye; Z98.41 Cataract extraction status, right eye; Z82.49 Family history of ischemic heart disease and other diseases of the circulatory system; Z88.8 Allergy status to other drugs, medicaments and biological substances; Z79.82 Long term (current) use of aspirin; Z79.899 Other long term (current) drug therapy
CPT/HCPCS: 10880